=== PATIENT | female | born 1990 | race African-American/Black ===

== ENCOUNTER 2019-11-17 05:00 | Emergency (ER) | payer OTHER ==
[~2019-11-17] VITALS: Ht 152.4 cm; Wt 52.6 kg
[2019-11-17 05:00] VITALS: TEMP 97.7
[2019-11-17] MEDS ORDERED: OMEP20CA PO (05:24)
[2019-11-17] MEDS ORDERED: CLARITIN10 M1 PO (05:24)
[2019-11-17 07:30] VITALS: BP 125/82
== END 2019-11-17 07:30 | disposition home or self-care (01) ==
LOC: ED 05:00
DX: K21.9 Gastro-esophageal reflux disease without esophagitis (principal); K29.70 Gastritis, unspecified, without bleeding
CPT/HCPCS: 87502; 87651; 96372; 99283; J2405